=== PATIENT | female | born 1950 | race Caucasian/White ===

== ENCOUNTER 2022-12-27 19:46 | Emergency (ER) | payer OTHER ==
[2022-12-27 19:59] VITALS: TEMP 98.1; BMI 28.7
[2022-12-27 22:09] VITALS: BP 160/70; PULSE 86; RESP 18
== END 2022-12-27 22:25 | disposition home or self-care (01) ==
LOC: JER 19:46
DX: M25.561 Pain in right knee (principal)
CPT/HCPCS: 73562-TC-RT-FY; 99283-25